=== PATIENT | male | born 1960 | race Caucasian/White ===

== ENCOUNTER → 2024-12-13 08:45 | Outpatient (REF) | payer OTHER, SELFPAY | LOC: RCS 08:45 | PROVIDERS: ATTENDING PHYSICIAN Internal Medicine Cardiovascular Disease; FAMILY PHYSICIAN Student in an Organized Health Care Education/Training Program | DX: R06.00 Dyspnea, unspecified (principal) | CPT/HCPCS: 93017; 93350 ==